=== PATIENT | male | born 1980 | race Hispanic/Latino ===

== ENCOUNTER 2019-10-08 02:33 | Emergency (ER) | payer OTHER, SELFPAY ==
[2019-10-08 02:47] VITALS: BP 165/109; PULSE 74; RESP 18; TEMP 36.3; O2SAT 98; BMI 30.4
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
[2019-10-08] MEDS: TET,DIPH,PERTUSS(ACELL),VAC/PF 0.5 ML SYRINGE IM (03:18)
[2019-10-08] MEDS: BACITRACIN OINT 0.9 GM PCKT 1 APPLIC TOP (03:18)
--- NOTE | 2019-10-08 03:39 | PC.NURSE ---
Pt cleansed wounds at sink, Small wound to R ring finger dressed with bacitracin and pressure dressing applied. Small, wounds, now closing, to R middle finger dressed with bacitracin and bandaid.
== END 2019-10-08 03:30 | disposition home or self-care (01) ==
PROVIDERS: Emergency Provider Emergency Medicine
DX: S61.411A Laceration without foreign body of right hand, initial encounter (principal); W25.XXXA Contact with sharp glass, initial encounter; Z23 Encounter for immunization
CPT/HCPCS: 90471; 99282; 99283; 90715

== ENCOUNTER 2020-08-03 10:36 | Emergency (ER) | payer OTHER, SELFPAY ==
[2020-08-03] VITALS (7 sets, daily range): BP systolic 116–132; BP diastolic 74–87; PULSE 79–90; RESP 14–22; TEMP 36.4; O2SAT 97–99; BMI 29.8
--- NOTE | 2020-08-03 10:45 | DI.RAD.S_ITS ---
PROCEDURE: XR CHEST 1V INDICATIONS: palpitations TECHNIQUE: One view of the chest was acquired. COMPARISON: None. FINDINGS: Surgical changes and devices: Overlying EKG wires. Lungs and pleura: Lungs are clear. No pleural effusions or pneumothorax. Mediastinum: Mediastinal contours appear normal. Heart size is normal. Bones and chest wall: No suspicious bony lesions. Overlying soft tissues appear unremarkable. IMPRESSION: No evidence of a cardiopulmonary abnormality. Dictated by: Theron Schumacher D.O. on 08/03/2020 at 10:24 Approved by: Theron Schumacher D.O. on 08/03/2020 at 10:24
[2020-08-03] MEDS: SODIUM CHLORIDE 0.9% 1,000 ML 1000 ML IV (11:10)
[2020-08-03 11:21] LABS: Prothrombin Time 11.2 SECONDS (10.1-12.7)
[2020-08-03 11:23] LABS: Add Manual Diff / Slide Review NO; Basophils Absolute Auto 100 /uL (0-100); Basophils Percent Auto 1.1 % (0-2); Eosinophils Absolute Auto 100 /uL (0-450); Eosinophils Percent Auto 1.7 % (2-4); Hematocrit 45.8 % (41-53); Hemoglobin 15.8 g/dL (13.5-17.5); Lymphocytes Absolute Auto 2900 /uL (1100-4500); Lymphocytes Percent Auto 42.2 % (25-40); Mean Corpuscular HGB Conc 34.4 % (30-36); Mean Corpuscular Hemoglobin 34.2 PG (26-34); Mean Corpuscular Volume 99.3 fL (80-100); Monocytes Absolute Auto 500 /uL (0-900); Monocytes Percent Auto 7.8 % (3-14); Neutrophils Absolute Auto 3200 /uL (1500-7000); Neutrophils Percent Auto 47.2 % (50-75); Platelet Count 144 X10^3/uL (150-400); Red Blood Cell Count 4.61 X10^6/uL (4.5-5.9); Red Cell Distribution Width 13.9 % (11.6-14.8); White Blood Cell Count 6.8 X10^3/uL (4.5-11.0)
[2020-08-03 11:24] LABS: PTT Partial Thromboplastin Tim 35 SECONDS (26.4-36.2)
[2020-08-03 11:25] LABS: Alanine Aminotransferase 112 IU/L (<50); Albumin 4.6 g/dL (3.5-5.0); Albumin Globulin Ratio 1.2 (1.0-2.8); Alkaline Phosphatase 72 U/L (38-126); Aspartate Aminotransferase 97 IU/L (17-59); BUN Creatinine Ratio 9.7 (6-22); Bilirubin Total 0.8 mg/dL (0.2-1.3); Blood Urea Nitrogen 10 mg/dL (9-20); Calcium 9.4 mg/dL (8.4-10.2); Carbon Dioxide 31 mmol/L (22-32); Chloride 107 mmol/L (98-107); Creatine Kinase 185 U/L (55-170); Estimated Glomerular Filt Rate > 60.0 mL/min (>60); Globulin 3.9 g/dL (1.7-4.1); Glucose 105 mg/dL (70-100); HEMOLYSIS < 15 (0-50); Magnesium 2.5 mg/dL (1.6-2.3); Potassium 4.1 mmol/L (3.4-5.1); Sodium 146 mmol/L (137-145); Total Protein 8.5 g/dL (6.3-8.2)
[2020-08-03 11:36] LABS: Troponin I < 0.012 ng/mL (0.01-0.034)
[2020-08-03 11:40] LABS: CKMB % Relative Index 0.8 % (1.5-5.0); Creatine Kinase MB 1.41 ng/mL (<2.37)
[2020-08-03 12:28] LABS: Thyroid Stimulating Hormone 1.96 uIU/mL (0.47-4.68)
--- NOTE | 2020-08-03 13:03 | ED_ITS ---
HPI - Arrhythmia/Palpitations General Chief Complaint: Arrhythmia/Palpitations Stated Complaint: hx of high blood pressure/palps 30 mins Time Seen by Provider: 08/03/20 13:03 Source: patient Mode of arrival: Ambulatory Limitations: no limitations History of Present Illness HPI narrative: This a 40-year-old male comes in with complaint of palpitations for 2-3 minutes this morning. Patient states that he woke up and states that it felt like his heart was ?beating crazy?. He describes this as feeling irregular and fast that he felt very fatigued and lightheaded but did not feel like he was going to pass out. Patient states that he did not have any chest pain or pressure. He did not have any syncope. No nausea or vomiting. No diarrhea constipation. No bright red blood or melena. He denies any issues with urination or swelling in his extremities. He does drink at least a six-pack daily either of beer or hard liquor. He denies any withdrawal symptoms in the mornings. He denies any past medical history but was once told his blood pressure was he took blood pressure medication for short period time but did not follow-up and did not get any return calls for his lab work to follow-up. Denies prior surgeries. No allergies to medications. He smokes a pack per day, drinks daily and denies any recreational drugs. Related Data Home Medications Medication Instructions Recorded Confirmed No Known Home Medications 08/03/20 08/03/20 Allergies Allergy/AdvReac Type Severity Reaction Status Date / Time Penicillins Allergy Unknown Verified 08/03/20 10:44 Review of Systems Review of Systems ROS Unobtainable: All systems reviewed & are unremarkable except as noted in HPI and below Patient History Medical History Healthy adult Social History Smoking Status: Current every day smoker Smoking Status: Current every day smoker alcohol intake frequency: 3 or more drinks per day Substance Use Type: does not use Exam Narrative Exam Narrative: GENERAL: Alert and oriented x three, HEENT: Head normocephalic, atraumatic, EOMI, pupils reactive, face symmetric, moist mucous membranes NECK: Supple, full range of motion CARDIOVASCULAR: Regular rate and rhythm without murmurs, rubs or gallops. RESPIRATORY: Breath sounds equal bilaterally, no wheezes rales or rhonchi. ABDOMEN: Soft, nontender. Normoactive bowel sounds all 4 quadrants. No guarding or rebound, rigidity, no mass : No CVA tenderness EXTREMITIES: Normal range of motion, no clubbing or edema. Neurovascularly intact NEUROLOGICAL: Cranial nerves II through XII grossly intact. Moving all extremities SKIN: Warm, dry, no petechiae, no rashes or lesions. Initial Vital Signs Initial Vital Signs: Vital Signs Temperature 97.6 F 08/03/20 10:41 Pulse Rate 90 08/03/20 10:41 Respiratory Rate 14 08/03/20 10:41 Blood Pressure 128/87 08/03/20 10:41 Pulse Oximetry 98 08/03/20 10:41 Course Orders Ordered: ED Orders 08/03/20 10:45 XR chest 1V Stat EKG-12 Lead Stat 08/03/20 11:00 Complete Blood Count AUTO DIFF Stat Comprehensive Metabolic Panel Stat Magnesium Stat Partial Thromboplastin Time Stat Prothrombin Time INR Stat Thyroid Stimulating Hormone Stat Troponin & CK Cardiac Panel Stat Discontinued Medications Sodium Chloride (Normal Saline 0.9%) 1,000 mls @ 1,000 mls/hr IV BOLUS ONE Stop: 08/03/20 11:44 Last Infusion: 08/03/20 12:41 Dose: 0 mls/hr Documented by: Admin: 08/03/20 11:10 Dose: 1,000 mls/hr Documented by: ANGELA Vital Signs Vital signs: Vital Signs - 8 hr 08/03/20 11:49 08/03/20 12:00 08/03/20 13:37 Pulse Rate 87 79 83 Respiratory Rate 19 16 18 Blood Pressure 132/76 116/74 Pulse Oximetry 98 99 99 MDM - Arrhythmia/Palpitations Lab Data Attestation: I reviewed the patient's lab results. Result diagrams: 08/03/20 11:00 08/03/20 11:00 Labs: Lab Results 08/03/20 08/03/20 08/03/20 Range/Units 11:00 11:00 11:00 WBC 6.8 (4.5-11.0) X10^3/uL RBC 4.61 (4.5-5.9) X10^6/uL Hgb 15.8 (13.5-17.5) g/dL Hct 45.8 (41-53) % MCV 99.3 (80-100) fL MCH 34.2 H (26-34) PG MCHC 34.4 (30-36) % RDW 13.9 (11.6-14.8) % Plt Count 144 L (150-400) X10^3/uL Neut % (Auto) 47.2 L (50-75) % Lymph % (Auto) 42.2 H (25-40) % Boyd % (Auto) 7.8 (3-14) % Eos % (Auto) 1.7 L (2-4) % Baso % (Auto) 1.1 (0-2) % Neut # (Auto) 3200 (5962-2909) /uL Lymph # (Auto) 2900 (2879-0149) /uL Boyd # (Auto) 500 (0-900) /uL Eos # (Auto) 100 (0-450) /uL Baso # (Auto) 100 (0-100) /uL PT 11.2 (10.1-12.7) SECONDS INR 1.0 (0.9-1.3) APTT 35 (26.4-36.2) SECONDS Sodium 146 H (137-145) mmol/L Potassium 4.1 (3.4-5.1) mmol/L Chloride 107 (98-107) mmol/L Carbon Dioxide 31 (22-32) mmol/L BUN 10 (9-20) mg/dL Creatinine 1.03 (0.66-1.25) mg/dL Estimated GFR > 60.0 (>60) mL/min BUN/Creatinine Ratio 9.7 (6-22) Glucose 105 H (70-100) mg/dL Calcium 9.4 (8.4-10.2) mg/dL Magnesium 2.5 H (1.6-2.3) mg/dL Total Bilirubin 0.8 (0.2-1.3) mg/dL AST 97 H (17-59) IU/L ALT 112 H (<50) IU/L Alkaline Phosphatase 72 (38-126) U/L Total Creatine Kinase 185 H (55-170) U/L CK-MB (CK-2) 1.41 (<2.37) ng/mL CK-MB (CK-2) Rel Index 0.8 L (1.5-5.0) % Troponin I < 0.012 (0.01-0.034) ng/mL Total Protein 8.5 H (6.3-8.2) g/dL Albumin 4.6 (3.5-5.0) g/dL Globulin 3.9 (1.7-4.1) g/dL Albumin/Globulin Ratio 1.2 (1.0-2.8) TSH (0.47-4.68) uIU/mL 08/03/20 Range/Units 11:00 WBC (4.5-11.0) X10^3/uL RBC (4.5-5.9) X10^6/uL Hgb (13.5-17.5) g/dL Hct (41-53) % MCV (80-100) fL MCH (26-34) PG MCHC (30-36) % RDW (11.6-14.8) % Plt Count (150-400) X10^3/uL Neut % (Auto) (50-75) % Lymph % (Auto) (25-40) % Boyd % (Auto) (3-14) % Eos % (Auto) (2-4) % Baso % (Auto) (0-2) % Neut # (Auto) (9716-0956) /uL Lymph # (Auto) (2280-5327) /uL Boyd # (Auto) (0-900) /uL Eos # (Auto) (0-450) /uL Baso # (Auto) (0-100) /uL PT (10.1-12.7) SECONDS INR (0.9-1.3) APTT (26.4-36.2) SECONDS Sodium (137-145) mmol/L Potassium (3.4-5.1) mmol/L Chloride (98-107) mmol/L Carbon Dioxide (22-32) mmol/L BUN (9-20) mg/dL Creatinine (0.66-1.25) mg/dL Estimated GFR (>60) mL/min BUN/Creatinine Ratio (6-22) Glucose (70-100) mg/dL Calcium (8.4-10.2) mg/dL Magnesium (1.6-2.3) mg/dL Total Bilirubin (0.2-1.3) mg/dL AST (17-59) IU/L ALT (<50) IU/L Alkaline Phosphatase (38-126) U/L Total Creatine Kinase (55-170) U/L CK-MB (CK-2) (<2.37) ng/mL CK-MB (CK-2) Rel Index (1.5-5.0) % Troponin I (0.01-0.034) ng/mL Total Protein (6.3-8.2) g/dL Albumin (3.5-5.0) g/dL Globulin (1.7-4.1) g/dL Albumin/Globulin Ratio (1.0-2.8) TSH 1.96 (0.47-4.68) uIU/mL Imaging Data Chest x-ray: Radiologist's Impresson: [address] [id number] ReportSigned Patient: Deric Biswas CMR#: [id number]: [id number]:[id number]/Sex: 40 / MDate of Service: 08/03/20Loc: EDAccession Number: [id number] Procedure: XR chest 1V Ordering Provider: Joceline Wall D.O. PROCEDURE: XR CHEST 1V INDICATIONS: palpitations TECHNIQUE: One view of the chest was acquired. COMPARISON: None. FINDINGS: Surgical changes and devices: Overlying EKG wires. Lungs and pleura: Lungs are clear. No pleural effusions or pneumothorax. Mediastinum: Mediastinal contours appear normal. Heart size is normal. Bones and chest wall: No suspicious bony lesions. Overlying soft tissues appear unremarkable. IMPRESSION: No evidence of a cardiopulmonary abnormality. Dictated by: Theron Schumacher D.O. on 08/03/2020 at 10:24 Approved by: Theron Schumacher D.O. on 08/03/2020 at 10:24 ECG Data Attestation: I personally reviewed and interpreted this ECG as follows: Interpretation: Sinus rhythm rate 84 PA 160 QRS 88 QTC of 439. No acute ST elevation depression appreciated. MDM Narrative Medical decision making narrative: This is a 40-year-old male comes in with complaint of palpitations. Patient is in a normal rhythm here in the department. He does have some mild electrolyte abnormalities with an elevated sodium and magnesium patient also has some LFT elevations which are likely secondary to his chronic alcohol use. Chest xray shows no acute changes. Discussed with patient alcohol can cause arrhythmias particularly in the setting of withdrawal although he did not feel like he was having any withdrawal symptoms this morning. Patient has been in normal rhythm he received some fluids and was recommend to follow up with primary care. He had been told he has hypertension in the past although he is not hypertensive here in the department. Discharge Plan Departure Patient Disposition: Home Clinical Impression: Palpitations Instructions: DI for Palpitations Activity Restrictions/Additional Instructions: Follow up with your physician for recheck. Call for an appointment. Options include [facility], [facility] and [facility]. Alcohol itself is cardiotoxic this does increase your risk of heart arrhythmia but no obvious heart arrhythmia was found today on your EKG. Please return for fevers, lightheadedness or passing out, new chest pain, shortness of breath, persistent vomiting, palpitations particularly if they feel very fast or very slow, black or bloody stools or other new or concerning symptoms. Prescriptions: No Action No Known Home Medications RF: 0
== END 2020-08-03 13:38 | disposition home or self-care (01) ==
PROVIDERS: Emergency Provider Emergency Medicine
DX: R00.2 Palpitations (principal)
CPT/HCPCS: 36415; 71045; 80053; 82550; 82553; 83735; 84443; 84484; 85025; 85610; 85730; 93005; 96360; 96361; 99284

== ENCOUNTER 2021-03-05 18:01 | Emergency (ER) | payer OTHER, SELFPAY ==
[2021-03-05 18:09] VITALS: BP 174/114; PULSE 108; RESP 18; TEMP 37.1; O2SAT 99; BMI 31.2
--- NOTE | 2021-03-05 21:44 | ED.BACK ---
HPI - Back Pain/Injury General Chief Complaint: Back Pain/Injury Stated Complaint: Pinched nerve on left leg x8 weeks Time Seen by Provider: 03/05/21 21:21 Source: patient and family Mode of arrival: Ambulatory Limitations: no limitations History of Present Illness HPI Narrative: Patient is a 40-year-old male who is here for evaluation approximately 2 months of left-sided hip and lower back pain. He also states he is getting tingling down the back of his leg. He did take some ibuprofen today but other than that has not tried any medications for his symptoms. He has been to a chiropractor that has not helped his symptoms. He has no urinary symptoms. No testicular pain. No change in bowel habits. No fevers. No skin rashes. There is no specific incident that caused the symptoms. Related Data Previous Rx's Medication Instructions Recorded cyclobenzaprine 10 mg tablet 10 mg PO TID PRN #21 tab 03/05/21 prednisone 20 mg tablet 20 mg PO DAILY 7 Days #7 tab 03/05/21 Allergies Allergy/AdvReac Type Severity Reaction Status Date / Time Penicillins Allergy Unknown Verified 03/05/21 18:11 Review of Systems Constitutional Constitutional: Denies fever(s) Gastrointestinal Gastrointestinal: Reports system reviewed and no additional complaints, except as documented Genitourinary Genitourinary: Reports system reviewed and no additional complaints, except as documented Musculoskeletal Musculoskeletal: Reports system reviewed and no additional complaints, except as documented and Reports as per HPI Integumentary/Breasts Skin/Breast: Reports system reviewed and no additional complaints, except as documented Patient History Medical History Healthy adult Social History Smoking Status: Current every day smoker Smoking Status: Current every day smoker alcohol intake frequency: 3 or more drinks per day Alcohol type: beer Substance Use Type: does not use Exam Initial Vital Signs Initial Vital Signs: Vital Signs Temperature 98.7 F 03/05/21 18:09 Pulse Rate 108 H 03/05/21 18:09 Respiratory Rate 18 03/05/21 18:09 Blood Pressure 174/114 H 03/05/21 18:09 Pulse Oximetry 99 03/05/21 18:09 Const General: cooperative, healthy appearing and comfortable [facility] Head: normal to inspection and normocephalic Resp Effort & Inspection: normal respiratory effort Cardio Rate: regular rate Neuro Other: Patient was some tingling to light touch along the posterior aspect of the left hip and lateral aspect of the lower leg. Extrem General: normal to inspection Other: Some tenderness to palpation along the lateral posterior aspect of the left hip Psych Appearance: grossly normal and well kempt Course Orders Ordered: Discontinued Medications Ketorolac Tromethamine (Ketorolac 30 Mg/Ml Vial) 30 mg IM NOW ONE Stop: 03/05/21 21:45 Last Admin: 03/05/21 21:52 Dose: 30 mg Documented by: DIONNA Vital Signs Vital signs: Vital Signs - 8 hr 03/05/21 22:03 Pulse Rate 79 Respiratory Rate 22 Blood Pressure 158/94 H Pulse Oximetry 99 MDM - Back Pain/Injury MDM Narrative Medical decision making narrative: Patient has been having symptoms for the past 2 months. No specific injury. No indication for radiologic studies. Has not been on any anti-inflammatories. Will have him start anti-inflammatories. He is given information that he could contact in order to establish a primary doctor. He was given return precautions. Low suspicion for cauda equina he expressed understanding and agreement. Discharge Plan Departure Patient Disposition: Home Clinical Impression: Lumbar back pain with radiculopathy affecting lower extremity Instructions: DI for Back Pain With Sciatica Activity Restrictions/Additional Instructions: It is important that you start on an anti-inflammatories such as Motrin or Naprosyn. You can purchase this [id number]. Be sure to take a anti reflux medication with it and also take it with food has a can upset her stomach. I do recommend you may contact the primary doctor. You can contact [phone]. Return to the emergency department for any new or worsening symptoms Prescriptions: New prednisone 20 mg tablet 20 mg PO DAILY 7 Days Qty: 7 0RF cyclobenzaprine 10 mg tablet 10 mg PO TID PRN (Reason: muscle spasm) Qty: 21 0RF
[2021-03-05] MEDS: KETOROLAC 30 MG/ML VIAL IM (21:52)
[2021-03-05 22:03] VITALS: BP 158/94; PULSE 79; RESP 22; O2SAT 99
== END 2021-03-05 22:04 | disposition home or self-care (01) ==
PROVIDERS: Emergency Provider Emergency Medicine
DX: M54.50 Low back pain, unspecified (principal); M54.10 Radiculopathy, site unspecified; F17.200 Nicotine dependence, unspecified, uncomplicated
CPT/HCPCS: 96372; 99283; J1885

== ENCOUNTER → 2024-03-21 11:30 | Outpatient (ROUT) | payer BC, SELFPAY ==
[2024-03-21 12:14] LABS: COVID-19 CEPHEID 4-PLEX PCR POSITIVE (Negative); Influenza A - CEPHEID Flu A NEGATIVE (NEGATIVE); Influenza B - CEPHEID Flu B NEGATIVE (NEGATIVE); Respiratory Syncytial Virus Negative (Negative)
== END ==
PROVIDERS: Visit Provider Family Medicine
DX: R05.1 Acute cough (principal)
CPT/HCPCS: 0241U